=== PATIENT | female | born 1970 | race Caucasian/White ===

== ENCOUNTER 2020-07-21 14:29 | Emergency (ER) | payer OTHER ==
[~2020-07-21] VITALS: Ht 162.6 cm; Wt 91.0 kg
[~2020-07-21 14:29] MED LIST: METF500T3
[2020-07-21] MEDS ORDERED: SODIUM CHLORIDE 0.9% 1,000 ML IV ONE (14:45)
[2020-07-21] MEDS ORDERED: ONDANSETRON HCL 4MG/2ML INJ IV STA (14:45)
[2020-07-21 15:16] LABS: BASOPHILS % 0.6 % (0.0-2.0); EOSINOPHILS % 1.8 % (0.0-5.0); HEMATOCRIT. 32.3 % (36.0-48.0); HEMOGLOBIN. 10.2 g/dL (12.0-16.0); LYMPHOCYTES % 18.5 % (20.0-50.0); MEAN CORPUSCULAR HEMOGLOBIN 22.8 pg (28.0-32.0); MEAN CORPUSCULAR VOLUME 72.3 fL (81.0-99.0); MEAN PLATELET VOLUME 9.1 fl (7.4-10.4); NEUTROPHILS % 72.1 % (40.0-76.0); PLATELET 248 x1000/uL (130-400); RED BLOOD CELL COUNT 4.47 mill/uL (4.2-5.4); RED CELL DISTRIBUTION WIDTH 18.6 % (11.6-14.6)
[2020-07-21 15:20] LABS: CHLORIDE 105 mEq/L (98-107)
[2020-07-21 17:39] LABS: CLARITY URINE CLOUDY (CLEAR); COLOR URINE YELLOW (YELLOW); KETONES URINE 1+ (NEGATIVE); LEUKOCYTE ESTERASE URINE 2+ (NEGATIVE); NITRITE URINE NEGATIVE (NEGATIVE); OCCULT BLOOD URINE NEGATIVE (NEGATIVE); PROTEIN URINE NEGATIVE (NEGATIVE); SPECIFIC GRAVITY URINE 1.019 (1.005-1.030); UROBILINOGEN URINE 0.2 E.U./dL (0.2-1.0)
[2020-07-21 18:10] VITALS: BP 101/59
== END 2020-07-21 18:15 | disposition home or self-care (01) ==
LOC: ER 14:29
DX: E11.65 Type 2 diabetes mellitus with hyperglycemia (principal); N30.00 Acute cystitis without hematuria; I10 Essential (primary) hypertension; J45.909 Unspecified asthma, uncomplicated; F41.9 Anxiety disorder, unspecified; Z79.899 Other long term (current) drug therapy
CPT/HCPCS: 36415; 71045; 80053; 81003; 83690; 84484; 85025; 93005; 96361; 96374; 99285; J2405; J7030